=== PATIENT | male | born 2000 | race Caucasian/White ===

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

== ENCOUNTER → 2018-02-14 | Outpatient (CLI) | payer BC | LOC: COL.RAD 15:23 | DX: N50.3 Cyst of epididymis (principal) ==

== ENCOUNTER 2018-03-20 12:01 | Emergency (ER) | payer BC ==
[~2018-03-20] VITALS: Ht 188 cm; Wt 103.2 kg
[2018-03-20 12:07] VITALS: TEMP 98.5
[2018-03-20] MEDS ORDERED: EXCEDRIN1 TAB (12:20)
[2018-03-20 13:45] VITALS: BP 121/71; PULSE 72
== END 2018-03-20 13:56 | disposition home or self-care (01) ==
LOC: COL.ER 12:01
DX: R19.7 Diarrhea, unspecified (principal); R11.2 Nausea with vomiting, unspecified; E86.9 Volume depletion, unspecified; F17.210 Nicotine dependence, cigarettes, uncomplicated
CPT/HCPCS: J1885; J2405; J2550; J7030

== ENCOUNTER 2020-11-12 21:47 | Emergency (ER) | payer OTHER ==
[~2020-11-12] VITALS: Ht 182.9 cm; Wt 86.4 kg
[~2020-11-12 21:47] MED LIST changes: +EXCEDRIN1 TAB
[2020-11-12 22:05] VITALS: TEMP 98.1
[2020-11-12 23:55] VITALS: BP 132/84; PULSE 78
== END 2020-11-12 23:55 | disposition home or self-care (01) ==
LOC: COL.ER 21:47
DX: S01.81XA Laceration without foreign body of other part of head, initial encounter (principal); F17.210 Nicotine dependence, cigarettes, uncomplicated; Z23 Encounter for immunization; W01.198A Fall on same level from slipping, tripping and stumbling with subsequent striking against other object, initial encounter; Y92.59 Other trade areas as the place of occurrence of the external cause; Y99.0 Civilian activity done for income or pay

== ENCOUNTER → 2020-11-19 | Emergency (ER) | payer OTHER ==
[2020-11-19 18:20] VITALS: BP 122/85; PULSE 80; TEMP 99.3
== END ==
LOC: COL.ER 18:12
DX: Z48.02 Encounter for removal of sutures (principal)